=== PATIENT | male | born 1935 | race Hispanic/Latino ===

== ENCOUNTER 2016-10-02 10:03 | Emergency (ER) | payer MEDICARE ==
--- NOTE | 2016-10-02 11:01 | Emergency Department Report ---
ED General Adult HPI - General Chief complaint: Back Pain/Injury Stated complaint: UPPER BACK PAIN Time Seen by Provider: 10/02/16 10:22 Source: patient Mode of arrival: Ambulatory Limitations: No Limitations - History of Present Illness Initial comments: 81 year old male presents with thoracic pain after doing plumbing work at the house 2 weeks ago. states it is an aching pain without radiation. states tylenol helps with the symptoms .denies other injury. states full rom of the neck and spine. - Related Data Home Medications Medication Instructions Recorded Confirmed Last Taken Atorvastatin [Lipitor] 40 mg PO DAILY 01/20/14 03/28/15 03/27/15 12:00 [place]-3 Fatty Acids/Fish Oil [Fish 1 tab PO DAILY 08/27/14 03/23/15 03/22/15 Oil] Previous Rx's Medication Instructions Recorded Last Taken Type Aspirin [Aspirin BABY CHEW TAB] 81 mg PO DAILY tab.chew 03/31/15 Unknown Rx AtorvaSTATin [Lipitor] 40 mg PO DAILY tablet 03/31/15 Unknown Rx Ezetimibe [Zetia] 10 mg PO DAILY tablet 03/31/15 Unknown Rx Ipratropium/Albuterol Sulfate 1 ampul IH Q6HRT ampul.neb 03/31/15 Unknown Rx [Duoneb 0.5 mg-3 mg/3 ml Soln] Levofloxacin [Levaquin TAB] 750 mg PO Q24HR #8 tablet 03/31/15 Unknown Rx [place]-3 Fatty Acids/Fish Oil [Fish 1,000 mg PO DAILY capsule 03/31/15 Unknown Rx Oil] oxyCODONE /ACETAMINOPHEN [Percocet 1 tab PO Q3HR PRN #45 tablet 03/31/15 Unknown Rx 5/325 mg] traMADol [Ultram 50 MG tab] 50 mg PO Q6HR PRN #14 tablet 10/02/16 Unknown Rx Allergies Allergy/AdvReac Type Severity Reaction Status Date / Time No Known Allergies Allergy Unverified 01/20/14 08:07 ED Review of Systems ROS: Stated complaint: UPPER BACK PAIN Other details as noted in HPI Constitutional: denies: chills, fever Eyes: denies: eye pain, eye discharge, vision change ENT: denies: ear pain, throat pain Respiratory: denies: cough, shortness of breath, wheezing Cardiovascular: denies: chest pain, palpitations Endocrine: no symptoms reported Gastrointestinal: denies: abdominal pain, nausea, diarrhea Genitourinary: denies: urgency, dysuria Musculoskeletal: back pain. denies: joint swelling, arthralgia Skin: denies: rash, lesions Neurological: denies: headache, weakness, paresthesias Psychiatric: denies: anxiety, depression Hematological/Lymphatic: denies: easy bleeding, easy bruising ED Past Medical Hx - Past Medical History Previous Medical History?: Yes Hx Hypertension: Yes Hx Heart Attack/AMI: No Hx Congestive Heart Failure: No Hx Deep Vein Thrombosis: No Hx Pulmonary Embolism: No Hx GERD: Yes Hx Liver Disease: (LFT ELEVATED; LIVER BIOPSY 01/2014,"EVERYTHING WAS OK") Hx Sickle Cell Disease: No Hx Arthritis: Yes Hx Asthma: No Hx COPD: No Hx Tuberculosis: No Hx HIV: No - Surgical History Past Surgical History?: Yes Hx Coronary Stent: Yes Hx Open Heart Surgery: No Hx Pacemaker: No Hx Internal Defibrillator: No Hx Cholecystectomy: No Hx Appendectomy: No Hx Breast Surgery: No Additional Surgical History: Right shoulder surgery - Social History Smoking Status: Never Smoker Substance Use Type: Non Opiate Pain, Prescribed - Medications Home Medications: Home Medications Medication Instructions Recorded Confirmed Last Taken Type Atorvastatin [Lipitor] 40 mg PO DAILY 01/20/14 03/28/15 03/27/15 12:00 History [place]-3 Fatty Acids/Fish Oil [Fish 1 tab PO DAILY 08/27/14 03/23/15 03/22/15 History Oil] Aspirin [Aspirin BABY CHEW TAB] 81 mg PO DAILY tab.chew 03/31/15 Unknown Rx AtorvaSTATin [Lipitor] 40 mg PO DAILY tablet 03/31/15 Unknown Rx Ezetimibe [Zetia] 10 mg PO DAILY tablet 03/31/15 Unknown Rx Ipratropium/Albuterol Sulfate 1 ampul IH Q6HRT ampul.neb 03/31/15 Unknown Rx [Duoneb 0.5 mg-3 mg/3 ml Soln] Levofloxacin [Levaquin TAB] 750 mg PO Q24HR #8 tablet 03/31/15 Unknown Rx [place]-3 Fatty Acids/Fish Oil [Fish 1,000 mg PO DAILY capsule 03/31/15 Unknown Rx Oil] oxyCODONE /ACETAMINOPHEN [Percocet 1 tab PO Q3HR PRN #45 tablet 03/31/15 Unknown Rx 5/325 mg] traMADol [Ultram 50 MG tab] 50 mg PO Q6HR PRN #14 tablet 10/02/16 Unknown Rx ED Physical Exam - General Limitations: No Limitations General appearance: alert, in no apparent distress - Head Head exam: Present: atraumatic, normocephalic - Eye Eye exam: Present: normal appearance - ENT ENT exam: Present: mucous membranes moist - Neck Neck exam: Present: normal inspection - Respiratory Respiratory exam: Present: normal lung sounds bilaterally. Absent: respiratory distress - Cardiovascular Cardiovascular Exam: Present: regular rate, normal rhythm. Absent: systolic murmur, diastolic murmur, rubs, gallop - GI/Abdominal GI/Abdominal exam: Present: soft, normal bowel sounds - Rectal Rectal exam: Present: deferred - Extremities Exam Extremities exam: Present: normal inspection - Back Exam Back exam: Present: normal inspection, vertebral tenderness (to the midline upper thoracic spine region,) - Neurological Exam Neurological exam: Present: alert, oriented X3 - Psychiatric Psychiatric exam: Present: normal affect, normal mood - Skin Skin exam: Present: warm, dry, intact, normal color. Absent: rash ED Course Vital Signs 10/02/16 10:07 Temperature 97.6 F Pulse Rate 53 L Respiratory 20 Rate Blood Pressure 122/73 O2 Sat by Pulse 98 Oximetry ED Medical Decision Making - Radiology Data Radiology results: image reviewed thoracic XR is unremarkable. Critical care attestation.: If time is entered above; I have spent that time in minutes in the direct care of this critically ill patient, excluding procedure time. ED Disposition Clinical Impression: Thoracic back sprain Disposition: DISCHARGED TO HOME OR SELFCARE Is pt being admited?: No Does the pt Need Aspirin: No Condition: Good Instructions: Back Pain (ED) Prescriptions: traMADol [Ultram 50 MG tab] 50 mg PO Q6HR PRN #14 tablet PRN Reason: Pain Referrals: PRIMARY CARE, [Primary Care Provider] - 3-5 Days JOSE ROBERTO BARCLAY MD [Staff Physician] - 3-5 Days Time of Disposition: 11:01
--- NOTE | 2016-10-02 11:35 | XRay Report ---
THORACIC SPINE RADIOGRAPHS INDICATION: Thoracic pain after working. COMPARISON: None similar. FINDINGS: AP and lateral thoracic spine radiographs suggest slight scoliosis superiorly, not significantly changed since 03/28/2015 CXR. Osteopenia/osteoporosis. Slight degenerative spurring at few levels. No abnormal paraspinal density with grossly intact costovertebral junctions and symmetric pedicles. Aortic knob calcifications. Clear imaged lungs. CONCLUSION: No definite acute thoracic spine radiographic abnormality with few degenerative changes and other findings, as described. Please correlate. Thank you for the opportunity to participate in this patient's care.
[2016-10-02 12:45] VITALS: BP 115/57
== END 2016-10-02 12:41 | disposition home or self-care (01) ==
LOC: ED 10:03
DX: S23.3XXA Sprain of ligaments of thoracic spine, initial encounter (principal); I10 Essential (primary) hypertension; M19.90 Unspecified osteoarthritis, unspecified site; K21.9 Gastro-esophageal reflux disease without esophagitis; Z79.82 Long term (current) use of aspirin; X58.XXXA Exposure to other specified factors, initial encounter; Y93.89 Activity, other specified; Y99.9 Unspecified external cause status; Y92.89 Other specified places as the place of occurrence of the external cause
CPT/HCPCS: 36415; 72072; 84484; 93005; 93010

== ENCOUNTER 2018-05-20 08:30 | Emergency (ER) | payer MEDICARE ==
[2018-05-20 09:24] VITALS: BP 135/57
--- NOTE | 2018-05-20 10:01 | Emergency Department Report ---
Blank Doc - Documentation Documentation: Patient presents to [facility] chief complaint of cough 4 weeks along with a weight loss. Patient denies fever or chest pain. Was seen by his primary care physician on the ninth of this month and had an x-ray done of his chest that was clear of any disease but the patient was told to follow with a lung doctor. Patient states that this was prescribed to exam because he did not understand why he needs to see a lung doctor if his chest x-ray was clear.Care of patient will be transferred to the Nurse Practitioner with any available for consultation
--- NOTE | 2018-05-20 10:02 | Emergency Department Report ---
- General Chief Complaint: Upper Respiratory Infection Stated Complaint: COUGHING,SORE ON RIGHT SIDE CHEST Time Seen by Provider: 05/20/18 09:37 Source: patient Mode of arrival: Ambulatory Limitations: No Limitations - Related Data Home Medications Medication Instructions Recorded Confirmed Last Taken Lisinopril [Zestril TAB] 5 mg PO DAILY 01/21/18 01/23/18 01/22/18 09:00 Previous Rx's Medication Instructions Recorded Last Taken Type Aspirin [Aspirin BABY CHEW TAB] 81 mg PO DAILY tab.chew 03/31/15 01/19/18 09: 00 Rx AtorvaSTATin [Lipitor] 40 mg PO DAILY tablet 03/31/15 01/22/18 09:00 Rx Ezetimibe [Zetia] 10 mg PO DAILY tablet 03/31/15 01/22/18 09:00 Rx [place]-3 Fatty Acids/Fish Oil [Fish 1,000 mg PO DAILY capsule 03/31/15 01/22/18 09:00 Rx Oil] Benzonatate [Tessalon Perles] 100 mg PO Q8HR PRN #12 capsule 05/20/18 Unknown Rx Allergies Allergy/AdvReac Type Severity Reaction Status Date / Time No Known Allergies Allergy Verified 01/21/18 10:51 ED Review of Systems ROS: Stated complaint: COUGHING,SORE ON RIGHT SIDE CHEST Other details as noted in HPI Comment: All other systems reviewed and negative Constitutional: denies: chills Eyes: denies: as per HPI ENT: denies: ear pain Respiratory: cough Cardiovascular: denies: chest pain Endocrine: denies: excessive sweating Gastrointestinal: denies: abdominal pain Genitourinary: denies: urgency Musculoskeletal: denies: back pain Skin: denies: lesions Neurological: denies: headache Psychiatric: denies: anxiety Hematological/Lymphatic: denies: easy bleeding ED Past Medical Hx - Past Medical History Hx Hypertension: Yes Hx Heart Attack/AMI: No Hx Congestive Heart Failure: No Hx Deep Vein Thrombosis: No Hx Pulmonary Embolism: No Hx GERD: Yes Hx Liver Disease: (LFT ELEVATED; LIVER BIOPSY 01/2014,"EVERYTHING WAS OK") Hx Sickle Cell Disease: No Hx Arthritis: Yes Hx Asthma: No Hx COPD: No Hx Tuberculosis: No Hx HIV: No - Surgical History Hx Coronary Stent: Yes Hx Open Heart Surgery: No Hx Pacemaker: No Hx Internal Defibrillator: No Hx Cholecystectomy: No Hx Appendectomy: No Hx Breast Surgery: No Additional Surgical History: Right shoulder surgery - Social History Smoking Status: Never Smoker - Medications Home Medications: Home Medications Medication Instructions Recorded Confirmed Last Taken Type Aspirin [Aspirin BABY CHEW TAB] 81 mg PO DAILY tab.chew 03/31/15 01/23/1801/19 09:00 Rx AtorvaSTATin [Lipitor] 40 mg PO DAILY tablet 03/31/15 01/23/18 01/22/18 09:00 Rx Ezetimibe [Zetia] 10 mg PO DAILY tablet 03/31/15 01/23/18 01/22/18 09:00 Rx [place]-3 Fatty Acids/Fish Oil [Fish 1,000 mg PO DAILY capsule 03/31/15 01/23/18 01/22/18 09:00 Rx Oil] Lisinopril [Zestril TAB] 5 mg PO DAILY 01/21/18 01/23/18 01/22/18 09:00 History Benzonatate [Tessalon Perles] 100 mg PO Q8HR PRN #12 capsule 05/20/18 Unknown Rx ED Physical Exam - General Limitations: No Limitations General appearance: alert - Head Head exam: Present: atraumatic - Eye Eye exam: Present: normal appearance - ENT ENT exam: Present: mucous membranes moist - Neck Neck exam: Present: normal inspection - Respiratory Respiratory exam: Present: normal lung sounds bilaterally - Cardiovascular Cardiovascular Exam: Present: regular rate - GI/Abdominal GI/Abdominal exam: Present: soft - Rectal Rectal exam: Present: deferred - Extremities Exam Extremities exam: Present: normal inspection, full ROM - Back Exam Back exam: Present: normal inspection, full ROM - Neurological Exam Neurological exam: Present: alert, oriented X3 - Psychiatric Psychiatric exam: Present: normal affect, normal mood - Skin Skin exam: Present: warm, dry ED Course Vital Signs 05/20/18 05/20/18 09:19 09:41 Temperature 97.8 F Pulse Rate 97 H Respiratory 16 Rate Blood Pressure 135/57 O2 Sat by Pulse 95 Oximetry ED Medical Decision Making - Lab Data Result diagrams: 05/20/18 10:10 05/20/18 10:10 - Radiology Data Radiology results: report reviewed, image reviewed - Medical Decision Making xray n on lisinopril - Differential Diagnosis ro pna or mass Critical care attestation.: If time is entered above; I have spent that time in minutes in the direct care of this critically ill patient, excluding procedure time. ED Disposition Clinical Impression: Cough Disposition: DC-01 TO HOME OR SELFCARE Is pt being admited?: No Does the pt Need Aspirin: No Condition: Stable Instructions: Chronic Cough (ED) Additional Instructions: follow up with pulmonology MD Prescriptions: Benzonatate [Tessalon Perles] 100 mg PO Q8HR PRN #12 capsule PRN Reason: Cough Referrals: PRIMARY CARE, [Primary Care Provider] - 3-5 Days GRAZYNA MIRANDA MD [Staff Physician] - 3-5 Days Time of Disposition: 11:40
[2018-05-20 10:21] LABS: Basophils % (Auto) 0.6 % (0.0-1.8); Eosinophils # (Auto) 0.5 K/mm3 (0.0-0.4); Eosinophils % (Auto) 7.7 % (0.0-4.3); Hemoglobin 13.9 gm/dl (11.8-15.2); Lymphocytes # (Auto) 1.5 K/mm3 (1.2-5.4); Lymphocytes % (Auto) 23.7 % (13.4-35.0); Mean Corpuscular HGB Conc 33 % (32-34); Mean Corpuscular Hemoglobin 32 pg (28-32); Mean Corpuscular Volume 98 fl (84-94); Monocytes # (Auto) 0.7 K/mm3 (0.0-0.8); Monocytes % (Auto) 10.2 % (0.0-7.3); Platelet Count 143 K/mm3 (140-440); Red Cell Distribution Width 13.8 % (13.2-15.2)
[2018-05-20 10:52] LABS: Alanine Aminotransferase 31 units/L (7-56); Albumin 3.9 g/dL (3.9-5); BUN/Creatinine Ratio 15; Blood Urea Nitrogen 15 mg/dL (9-20); Calcium 8.7 mg/dL (8.4-10.2); Hemolysis Index 8
--- NOTE | 2018-05-20 11:22 | Cat Scan Report ---
CT chest without contrast: Cough. Transverse images are obtained through the chest into the upper abdomen. Coronal and sagittal 2-D reformatted images are included. There is no hilar and no mediastinal adenopathy appreciated. The central airways are patent. The cardiac contour is grossly normal in size. Cardiovascular calcifications are present. The thoracic aorta is normal in size and contour. There are no nodules and no infiltrates identified. There is mild atelectasis inferior to the left hilum. The pleural surfaces are unremarkable. There are no effusions. Images carried into the upper abdomen demonstrates a partially visualized exophytic left renal cyst. No lytic or blastic bone lesions. The bones are demineralized. No prior exam for comparison. Impression: Minimal left subhilar atelectasis.
== END 2018-05-20 11:47 | disposition home or self-care (01) ==
LOC: ED 08:30
DX: R05 Cough (principal); I10 Essential (primary) hypertension; K21.9 Gastro-esophageal reflux disease without esophagitis; M19.90 Unspecified osteoarthritis, unspecified site; Z95.818 Presence of other cardiac implants and grafts; Z79.899 Other long term (current) drug therapy
CPT/HCPCS: 36415; 71250; 80053; 85025

== ENCOUNTER 2019-12-17 11:55 | Inpatient (IN) | payer MEDICARE ==
[2019-12-17] MEDS ORDERED: ASPIRIN 325 MG TAB PO ONE (12:02)
--- NOTE | 2019-12-17 13:12 | XRay Report ---
CHEST 2 VIEWS INDICATION: Chest pain. COMPARISON: 01/21/2018 FINDINGS: Support devices: None. Heart: Within normal limits. Lungs/pleura: No acute air space or interstitial disease. No pneumothorax. Additional findings: None. IMPRESSION: No acute findings. Signer Name: Jaime Garber Jr, MD Signed: 12/17/2019 1:07 PM Workstation Name: [id number]
[2019-12-17 13:15] LABS: Basophils % (Auto) 0.5 % (0.0-1.8); Eosinophils # (Auto) 0.1 K/mm3 (0.0-0.4); Eosinophils % (Auto) 1.9 % (0.0-4.3); Hematocrit 39.4 % (35.5-45.6); Lymphocytes # (Auto) 1.9 K/mm3 (1.2-5.4); Lymphocytes % (Auto) 33.2 % (13.4-35.0); Mean Corpuscular HGB Conc 33 % (32-34); Mean Corpuscular Volume 98 fl (84-94); Monocytes # (Auto) 0.5 K/mm3 (0.0-0.8); Monocytes % (Auto) 9.6 % (0.0-7.3); Platelet Count 132 K/mm3 (140-440); Red Blood Count 4.01 M/mm3 (3.65-5.03); Red Cell Distribution Width 14.1 % (13.2-15.2)
[2019-12-17 13:44] LABS: Alanine Aminotransferase 34 units/L (7-56); Albumin 4.2 g/dL (3.9-5); BUN/Creatinine Ratio 16; Blood Urea Nitrogen 16 mg/dL (9-20); Calcium 8.9 mg/dL (8.4-10.2); Hemolysis Index 7
--- NOTE | 2019-12-17 16:57 | Emergency Department Report ---
ED Chest Pain HPI - General Chief Complaint: Chest Pain Stated Complaint: CHEST PAIN PUI?: No Time Seen by Provider: 12/17/19 16:40 Source: patient Mode of arrival: Ambulatory Limitations: No Limitations - History of Present Illness Initial Comments: Patient is an 84-year-old male that presents emergency room with complaints of chest pain rating down his left arm. Patient states his chest pain has been intermittent for 2 to 3 weeks. Patient states his chest pain started this morning at 10 AM and is a 4-5 out of 10. Patient states that his chest pain is unchanged with exertion. Patient states he has dyspnea on exertion at times. Patient states his been having a lot of fatigue as well. 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 Fernandez office sent him here for an evaluation. Patient denies diaphoresis and nausea and vomiting. Patient states he had a mild heart attack and has had 2 stents placed 10 years ago. Patient denies CHF. Patient denies of diabetes. Patient states he has history of hypertension and GERD. MD Complaint: chest pain -: Sudden Pain Location: substernal, left chest Pain Radiation: LUE Severity: mild, moderate Severity scale (0 -10): 4 Quality: heaviness, squeezing Consistency: constant Improves With: nothing Worsens With: nothing re: dyspnea. denies: nausea, vomting, diaphoresis, sense of impending doom Other Symptoms: denies: cough, fever, syncope, rash, acid taste in mouth, leg swelling, palpitations, burping Treatments Prior to Arrival: aspirin Aspirin use within the Past 7 Days: (1) Yes - Related Data On Oral Contraceptives: No Home Medications Medication Instructions Recorded Confirmed Last Taken lisinopriL [Zestril TAB] 5 mg PO DAILY 01/21/18 01/23/18 01/22/18 09:00 Previous Rx's Medication Instructions Recorded Last Taken Type Aspirin [Aspirin BABY CHEW TAB] 81 mg PO DAILY tab.chew 03/31/15 01/19/18 09:00 Rx AtorvaSTATin [Lipitor] 40 mg PO DAILY tablet 03/31/15 01/22/18 09:00 Rx Ezetimibe [Zetia] 10 mg PO DAILY tablet 03/31/15 01/22/18 09:00 Rx [place]-3 Fatty Acids/Fish Oil [Fish 1,000 mg PO DAILY capsule 03/31/15 01/22/18 09:00 Rx Oil] Benzonatate [Tessalon Perles] 100 mg PO Q8HR PRN #12 capsule 05/20/18 Unknown Rx Allergies Allergy/AdvReac Type Severity Reaction Status Date / Time No Known Allergies Allergy Verified 12/17/19 11:56 Heart Score - HEART Score History: Moderately suspicious EKG: Non-specific Age: > 65 Risk factors: > 3 risk factors or hx of atherosclerotic disease Troponin: < normal limit HEART Score: 6 ED Review of Systems ROS: Stated complaint: CHEST PAIN Other details as noted in HPI Constitutional: denies: chills, fever Eyes: denies: eye pain, eye discharge, vision change ENT: denies: ear pain, throat pain Respiratory: denies: cough, wheezing Cardiovascular: chest pain, dyspnea on exertion. denies: palpitations Endocrine: no symptoms reported Gastrointestinal: denies: abdominal pain, nausea, diarrhea Genitourinary: denies: urgency, dysuria Musculoskeletal: denies: back pain, joint swelling, arthralgia Skin: denies: rash, lesions Neurological: denies: headache, weakness, paresthesias Psychiatric: denies: anxiety, depression Hematological/Lymphatic: denies: easy bleeding, easy bruising ED Past Medical Hx - Past Medical History Previous Medical History?: Yes Hx Hypertension: Yes Hx Heart Attack/AMI: No Hx Congestive Heart Failure: No Hx Deep Vein Thrombosis: No Hx Pulmonary Embolism: No Hx GERD: Yes Hx Liver Disease: (LFT ELEVATED; LIVER BIOPSY 01/2014,"EVERYTHING WAS OK") Hx Sickle Cell Disease: No Hx Arthritis: Yes Hx Asthma: No Hx COPD: No Hx Tuberculosis: No Hx HIV: No - Surgical History Past Surgical History?: Yes Hx Coronary Stent: Yes Hx Open Heart Surgery: No Hx Pacemaker: No Hx Internal Defibrillator: No Hx Cholecystectomy: No Hx Appendectomy: No Hx Breast Surgery: No Additional Surgical History: Right shoulder surgery/ KNEE SURGERY X 3 - Family History Family history: no significant - Social History Smoking Status: Never Smoker Substance Use Type: None - Medications Home Medications: Home Medications Medication Instructions Recorded Confirmed Last Taken Type Aspirin [Aspirin BABY CHEW TAB] 81 mg PO DAILY tab.chew 03/31/15 01/23/18 01/19/18 09:00 Rx AtorvaSTATin [Lipitor] 40 mg PO DAILY tablet 03/31/15 01/23/18 01/22/18 09:00 Rx Ezetimibe [Zetia] 10 mg PO DAILY tablet 03/31/15 01/23/18 01/22/18 09:00 Rx [place]-3 Fatty Acids/Fish Oil [Fish 1,000 mg PO DAILY capsule 03/31/15 01/23/18 01/22/18 09:00 Rx Oil] lisinopriL [Zestril TAB] 5 mg PO DAILY 01/21/18 01/23/18 01/22/18 09:00 History Benzonatate [Tessalon Perles] 100 mg PO Q8HR PRN #12 capsule 05/20/18 Unknown Rx ED Physical Exam - General Limitations: No Limitations General appearance: alert, in no apparent distress - Head Head exam: Present: atraumatic, normocephalic - Eye Eye exam: Present: normal appearance - ENT ENT exam: Present: mucous membranes moist - Neck Neck exam: Present: normal inspection - Respiratory Respiratory exam: Present: normal lung sounds bilaterally. Absent: respiratory distress, chest wall tenderness - Cardiovascular Cardiovascular Exam: Present: regular rate, normal rhythm. Absent: systolic murmur, diastolic murmur, rubs, gallop - GI/Abdominal GI/Abdominal exam: Present: soft, normal bowel sounds - Rectal Rectal exam: Present: deferred - Extremities Exam Extremities exam: Present: normal inspection - Back Exam Back exam: Present: normal inspection - Neurological Exam Neurological exam: Present: alert, oriented X3 - Psychiatric Psychiatric exam: Present: normal affect, normal mood - Skin Skin exam: Present: warm, dry, intact, normal color. Absent: rash ED Course Vital Signs 12/17/19 12/17/19 12/17/19 11:56 17:08 17:11 Temperature 98.2 F Pulse Rate 59 L 49 L Respiratory 18 14 16 Rate Blood Pressure 128/65 Blood Pressure 196/76 [Left] O2 Sat by Pulse 95 99 98 Oximetry 12/17/19 12/17/19 12/17/19 17:16 18:00 18:16 Temperature Pulse Rate 42 L 46 L 49 L Respiratory 16 7 L 17 Rate Blood Pressure 196/76 210/86 Blood Pressure [Left] O2 Sat by Pulse 97 96 96 Oximetry 12/17/19 12/17/19 12/17/19 18:30 18:46 19:00 Temperature Pulse Rate 53 L 53 L 46 L Respiratory 12 21 13 Rate Blood Pressure 210/86 210/86 210/86 Blood Pressure [Left] O2 Sat by Pulse 96 97 98 Oximetry 12/17/19 12/17/19 12/17/19 20:00 20:16 20:30 Temperature Pulse Rate 46 L 47 L 50 L Respiratory 18 13 12 Rate Blood Pressure 232/95 127/46 190/72 Blood Pressure [Left] O2 Sat by Pulse 98 97 98 Oximetry 12/17/19 12/17/19 12/17/19 20:46 21:00 21:16 Temperature Pulse Rate 45 L 44 L 47 L Respiratory 18 9 L 14 Rate Blood Pressure 190/72 190/72 149/66 Blood Pressure [Left] O2 Sat by Pulse 97 98 97 Oximetry 12/17/19 12/17/19 12/17/19 21:30 21:46 21:56 Temperature Pulse Rate 43 L 44 L 49 L Respiratory 18 8 L 14 Rate Blood Pressure 149/66 150/61 Blood Pressure 150/61 [Left] O2 Sat by Pulse 96 96 96 Oximetry - Reevaluation(s) Reevaluation #1: I discussed all results with patient. I discussed plan of care with patient. Patient agrees with plan of care and admission. Patient to be admitted to the hospitalist service. 12/17/19 16:57 - Consultations Consultation #1: Hospitalist consulted for admission. Hospitalist to admit patient. 12/17/19 16:57 Consultation #2: Cardiology consult placedDr. Fernandez. 12/17/19 17:01 NATHALIA score - Nathalia Score Age > 65: (1) Yes Aspirin use within the Past 7 Days: (1) Yes 3 or more CAD Risk Factors: (1) Yes 2 or more Angina events in past 24 hrs: (1) Yes Known CAD with more than 50% Stenosis: (0) No Elevated Cardiac Markers: (0) No ST Deviation Greater than 0.5mm: (0) No NATHALIA Score: 4 ED Medical Decision Making - Lab Data Result diagrams: 12/17/19 13:01 12/17/19 13:01 - EKG Data -: EKG Interpreted by Ne EKG shows normal: sinus rhythm, intervals, ST-T waves - EKG Data Interpretation: other (Right bundle branch block, axis deviation, LAFB. Borderline LVH) - Radiology Data Radiology results: report reviewed CHEST 2 VIEWS INDICATION: Chest pain. COMPARISON: 01/21/2018 FINDINGS: Support devices: None. Heart: Within normal limits. Lungs/pleura: No acute air space or interstitial disease. No pneumothorax. Additional findings: None. IMPRESSION: No acute findings. - Medical Decision Making Patient is an 84-year-old male that presents emergency room with complaints of chest pain. Patient has a history of CAD and 2 cardiac stents. Patient also had mild dyspnea on exertion. Patient had labs done which were negative. Patient troponin was negative the patient will require further evaluation to rule out ACS. Patient admitted to the hospital service. Consult placed for the patient's ship cleaner, Dr. Fernandez. Patient given aspirin. - Differential Diagnosis ACS, CAD, chest pain, [facility]KEON Critical Care Time: Yes Critical care time in (mins) excluding proc time.: 35 Critical care attestation.: If time is entered above; I have spent that time in minutes in the direct care of this critically ill patient, excluding procedure time. Critical Care Time: 35 minutes ED Disposition Clinical Impression: History of heart artery stent Chest pain Qualifiers: Chest pain type: unspecified Qualified Code(s): R07.9 - Chest pain, unspecified CAD (coronary artery disease) Qualifiers: Coronary Disease-Associated Artery/Lesion type: [place] artery [place] vs. transplanted heart: [place] heart Associated angina: with unspecified angina Qualified Code(s): I25.119 - Atherosclerotic heart disease of [place] coronary artery with unspecified angina pectoris Disposition: -09 OP ADMIT IP TO THIS HOSP Is pt being admited?: Yes Does the pt Need Aspirin: No Condition: Critical Time of Disposition: 16:58
--- NOTE | 2019-12-17 16:58 | History and Physical Report ---
History of Present Illness Chief complaint: My chest hurts History of present illness: 84 YO Male with HTN, HLD, GERD, CAD S/P Stent Placement, OA presents to ED for evaluation. Pt states that he has experienced pain in his chest over the past 3 weeks with a sudden onset of worsening chest pain this morning shortly after awakening from sleep at around 1000 hrs. Patient states that pain is 45/10, was initially intermittent but has now become more constant, sharp, crushing in nature, substernal, radiates to the left arm, not worsened with exertion, not relieved with rest. Patient acknowledges orthopnea/PND, decreased exercise tolerance, dyspnea on exertion. Patient transported to [facility] via private vehicle for further evaluation and care. Patient seen and evaluated in the emergency department. Lab and imaging studies reviewed. Patient found to have clinical symptoms consistent with CHF decompensation, as well as angina at rest. Patient admitted to telemetry and initiated on CHF protocol. Cardiology team consulted in the ED. Echocardiogram is ordered and pending at the time of admission. Patient denies fever, chills, palpitation, productive cough, skin rash, nausea, vomiting, diarrhea, known ill contacts, known exposure to COVID-19. Advanced care planning conducted in ED. No prior admission for review. All medication listed at time of admission has been reconciled. Past History Past Medical History: CAD, GERD, hypertension Past Surgical History: total knee replacement, Other (Right shoulder surgery) Social history: , lives with family. denies: smoking, alcohol abuse Family history: hypertension Medications and Allergies Allergies Allergy/AdvReac Type Severity Reaction Status Date / Time No Known Allergies Allergy Verified 12/17/19 11:56 Home Medications Medication Instructions Recorded Confirmed Last Taken Type Aspirin [Aspirin BABY CHEW TAB] 81 mg PO DAILY tab.chew 03/31/15 01/23/18 01/19/18 09:00 Rx AtorvaSTATin [Lipitor] 40 mg PO DAILY tablet 03/31/15 01/23/18 01/22/18 09:00 Rx Ezetimibe [Zetia] 10 mg PO DAILY tablet 03/31/15 01/23/18 01/22/18 09:00 Rx [place]-3 Fatty Acids/Fish Oil [Fish 1,000 mg PO DAILY capsule 03/31/15 01/23/18 01/22/18 09:00 Rx Oil] lisinopriL [Zestril TAB] 5 mg PO DAILY 01/21/18 01/23/18 01/22/18 09:00 History Benzonatate [Tessalon Perles] 100 mg PO Q8HR PRN #12 capsule 05/20/18 Unknown Rx Review of Systems Constitutional: no weight loss, no weight gain, no fever, no chills Ears, nose, mouth and throat: no ear pain, no tinnitis, no decreased hearing, no nose pain Cardiovascular: chest pain, orthopnea, dyspnea on exertion, paroxysmal nocturnal dyspnea, decreased exercise tolerance, no palpitations Respiratory: no cough, no cough with sputum, no hemoptysis Gastrointestinal: no abdominal pain, no nausea, no vomiting, no diarrhea, no hematemesis Genitourinary Male: no hematuria, no flank pain, no discharge, no urinary frequency, no urinary hesitancy Rectal: no pain, no incontinence, no bleeding Musculoskeletal: no neck stiffness, no neck pain, no shooting arm pain, no low back pain Integumentary: no rash, no pruritis, no redness, no sores, no wounds Neurological: no transient paralysis, no paralysis, no weakness, no parathesias, no numbness, no tingling, no seizures Psychiatric: no anxiety, no memory loss, no change in sleep habits, no sleep disturbances, no insomnia, no hypersomnia, no change in appetite, no change in libido Endocrine: no cold intolerance, no heat intolerance, no polyphagia, no excessive thirst, no polydipsia Hematologic/Lymphatic: no easy bruising, no easy bleeding, no lymphedema Allergic/Immunologic: no persistent infections Exam - Constitutional Vitals: Temp Pulse Resp BP Pulse Ox 98.2 F 59 L 18 128/65 95 12/17/19 11:56 12/17/19 11:56 12/17/19 11:56 12/17/19 11:56 12/17/19 11:56 General appearance: Present: no acute distress, well-nourished - EENT Eyes: Present: PERRL ENT: hearing intact, clear oral mucosa - Neck Neck: Present: supple, normal ROM - Respiratory Respiratory effort: normal Respiratory: bilateral: CTA - Cardiovascular Heart Sounds: Present: S1 & S2. Absent: rub, click - Extremities Extremities: pulses symmetrical, No edema Peripheral Pulses: within normal limits - Abdominal General gastrointestinal: Present: soft, non-tender, non-distended, normal bowel sounds Male genitourinary: Present: normal - Integumentary Integumentary: Present: clear, warm, dry - Musculoskeletal Musculoskeletal: gait normal, strength equal bilaterally - Psychiatric Psychiatric: appropriate mood/affect, intact judgment & insight - Neurologic Neurologic: CNII-XII intact, moves all extremities HEART Score - HEART Score EKG: Non-specific Age: > 65 Risk factors: > 3 risk factors or hx of atherosclerotic disease Troponin: Troponin T < 0.010 ng/mL (0.00-0.029) 12/17/19 14:53 Troponin: < normal limit Results - Labs CBC & Chem 7: 12/17/19 13:01 12/17/19 13:01 Labs: Abnormal lab results 12/17/19 Range/Units 13:01 MCV 98 H (84-94) fl MCH 33 H (28-32) pg Plt Count 132 L (140-440) K/mm3 [place] % (Auto) 9.6 H (0.0-7.3) % Assessment and Plan - Patient Problems (1) Diastolic CHF Current Visit: Yes Status: Suspected Qualifiers: Heart failure chronicity: acute Qualified Code(s): I50.31 - Acute diastolic (congestive) heart failure Plan to address problem: Strict I's/O, daily weight, afterload reduction, monitor urine output every shift, BMP, thyroid panel, magnesium level, echocardiogram pending at the time of admission. Cardiology team consulted in ED. (2) Angina at rest Current Visit: Yes Status: Acute Plan to address problem: Serial cardiac enzymes, EKG, telemetry monitoring, cardiology consulted, supportive care. Supplemental oxygen, nitro as needed, aspirin, morphine as needed. (3) CAD (coronary artery disease) Current Visit: Yes Status: Acute Qualifiers: Coronary Disease-Associated Artery/Lesion type: [place] artery [place] vs. transplanted heart: [place] heart Associated angina: with unspecified angina Qualified Code(s): I25.119 - Atherosclerotic heart disease of [place] coronary artery with unspecified angina pectoris Plan to address problem: Lipid panel, low-cholesterol diet, risk factor reduction therapy, statin therapy. (4) Hyperlipidemia Current Visit: Yes Status: Acute Qualifiers: Hyperlipidemia type: mixed hyperlipidemia Qualified Code(s): E78.2 - Mixed hyperlipidemia Plan to address problem: Lipid panel, statin therapy, low-cholesterol diet, risk factor reduction. (5) Gastroesophageal reflux disease Current Visit: Yes Status: Acute Qualifiers: Esophagitis presence: without esophagitis Qualified Code(s): K21.9 - Gastro-esophageal reflux disease without esophagitis Plan to address problem: PPI therapy, supportive care, outpatient gastroenterology follow-up. (6) DVT prophylaxis Current Visit: No Status: Acute Plan to address problem: SCD to bilateral lower extremities while in bed, patient is ambulatory. (7) Advance care planning Current Visit: Yes Status: Acute Plan to address problem: Disease education conducted, patient is full code, patient acknowledges understanding and agreement with care plan, +30 minutes.
[2019-12-17] MEDS ORDERED: ACETAMINOPHEN 325 MG TAB PO PRN (17:00)
[2019-12-17] MEDS ORDERED: ONDANSETRON 4 MG/2 ML INJ IV PRN (17:00)
[2019-12-17] MEDS ORDERED: BENZONATATE 100 MG CAP PO PRN (17:01)
[2019-12-17 17:56] LABS: Chol/HDL Ratio 2.73 %
[2019-12-17 18:10] LABS: Free T4 (Free Thyroxine) 1.04 ng/dL (0.76-1.46)
[2019-12-18 06:03] LABS: Alanine Aminotransferase 29 units/L (7-56); Albumin 3.6 g/dL (3.9-5); BUN/Creatinine Ratio 15; Blood Urea Nitrogen 15 mg/dL (9-20); Calcium 8.8 mg/dL (8.4-10.2); Hemolysis Index 16
[2019-12-18] MEDS ORDERED: REGADENOSON 0.4 MG/5 ML INJ IV ONE ×2 (09:06→09:09)
--- NOTE | 2019-12-18 09:44 | Consultation ---
History of Present Illness Consult date: 12/18/19 Requesting physician: DUSTY PAREDES III Consult reason: chest pain History of present illness: The pt is an 84 YO male with a past medical history of CAD s/p PCI, HTN, HLP, RBBB. He is followed in our office by Dr. Fernandez. He presented with c/o chest pain for the past 2 months. He called our office yesterday with c/o worsening chest pain and was instructed to present to ED for further eval/management. Pt describes his chest pain as an intermittent left-sided stabbing pain with no clear aggravating or alleviating factors. The pain sometimes radiates down his left arm. He denies any associated SOB, palpitations, n/v, diaphoresis, dizziness or syncope. He does admit to easy fatigability over the past 2 months. LHC done 11/2009 with PCI of mid and prox LAD with MIRTA. Echo done 04/2016 showed EF 55-60%, mild LVH, no significant valvular abnormalities. Lexiscan MPI stress test done 11/2016 was negative for significant ischemia. Past History Past Medical History: CAD, hypertension, hyperlipidemia Past Surgical History: total knee replacement, Other (Right shoulder surgery) Social history: , lives with family. denies: smoking, alcohol abuse Family history: hypertension Medications and Allergies Allergies Allergy/AdvReac Type Severity Reaction Status Date / Time No Known Allergies Allergy Verified 12/17/19 11:56 Home Medications Medication Instructions Recorded Confirmed Last Taken Type Aspirin [Aspirin BABY CHEW TAB] 81 mg PO DAILY tab.chew 03/31/15 01/23/18 01/19/18 09:00 Rx AtorvaSTATin [Lipitor] 40 mg PO DAILY tablet 03/31/15 01/23/18 01/22/18 09:00 Rx Ezetimibe [Zetia] 10 mg PO DAILY tablet 03/31/15 01/23/18 01/22/18 09:00 Rx [place]-3 Fatty Acids/Fish Oil [Fish 1,000 mg PO DAILY capsule 03/31/15 01/23/18 01/22/18 09:00 Rx Oil] lisinopriL [Zestril TAB] 5 mg PO DAILY 01/21/18 01/23/18 01/22/18 09:00 History Benzonatate [Tessalon Perles] 100 mg PO Q8HR PRN #12 capsule 05/20/18 Unknown Rx Active Meds: Active Medications Acetaminophen (Tylenol) 650 mg PO Q4H PRN PRN Reason: Pain MILD(1-3)/Fever >100.5/CRUMP Aspirin (Baby Aspirin) 81 mg PO DAILY [facility] Atorvastatin Calcium (Lipitor) 40 mg PO DAILY [facility] Benzonatate (Tessalon Perles) 100 mg PO Q8HR PRN PRN Reason: Cough Ezetimibe (Zetia) 10 mg PO DAILY [facility] Fish Oil (Fish Oil) 1,000 mg PO DAILY [facility] Lisinopril (Zestril) 5 mg PO DAILY [facility] Ondansetron HCl (Zofran) 4 mg IV Q8H PRN PRN Reason: Nausea And Vomiting Pneumococcal Polyvalent Vaccine (Pneumovax 23) 0.5 ml IM .ONCE ONE Stop: 12/18/19 12:01 Sodium Chloride (Sodium Chloride Flush Syringe 10 Ml) 10 ml IV BID STEPHON Last Admin: 12/17/19 21:53 Dose: 10 ml Documented by: Sodium Chloride (Sodium Chloride Flush Syringe 10 Ml) 10 ml IV PRN PRN PRN Reason: LINE FLUSH Sodium Chloride (Sodium Chloride Flush Syringe 10 Ml) 10 ml IV PRN PRN PRN Reason: LINE FLUSH Review of Systems Constitutional: no weight loss, no weight gain, no fever, no chills, no sweats Ears, nose, mouth and throat: no ear pain, no nose pain, no sinus pressure, no sinus pain Cardiovascular: chest pain, decreased exercise tolerance, no orthopnea, no palpitations, no rapid/irregular heart beat, no edema, no syncope, no lightheadedness, no shortness of breath, no dyspnea on exertion, no leg edema Respiratory: no cough, no shortness of breath, no dyspnea on exertion, no congestion, no wheezing, no pain on inspiration Gastrointestinal: no abdominal pain, no nausea, no vomiting, no diarrhea, no co nstipation, no change in bowel habits Genitourinary Male: no dysuria, no hematuria, no flank pain, no discharge, no urinary frequency, no urinary hesitancy Musculoskeletal: no neck stiffness, no neck pain, no shooting arm pain, no arm numbness/tingling, no low back pain, no shooting leg pain Integumentary: no rash, no pruritis, no redness, no sores, no wounds Neurological: no head injury, no paralysis, no weakness, no parathesias, no numbness, no tingling, no seizures, no syncope Psychiatric: no anxiety Endocrine: no cold intolerance, no heat intolerance Hematologic/Lymphatic: no easy bruising Allergic/Immunologic: no urticaria Physical Examination Vital Signs Temp Pulse Resp BP Pulse Ox 98.2 F 59 L 18 128/65 95 12/17/19 11:56 12/17/19 11:56 12/17/19 11:56 12/17/19 11:56 12/17/19 11:56 General appearance: no acute distress HEENT: Positive: PERRL, Normocephaly, Mucus Membranes Moist Neck: Positive: neck supple, trachea midline Cardiac: Positive: Reg Rate and Rhythm, S1/S2 Lungs: Positive: Decreased Breath Sounds Neuro: Positive: Grossly Intact Abdomen: Negative: Tender Skin: Negative: Rash Musculoskeletal: No Pain Extremities: Absent: edema Results 12/17/19 13:12/18/19 04:25 Cardiac Enzymes 12/17/19 12/18/19 Range/Units 13:01 04:25 AST 40 34 (5-40) units/L Lipids 12/17/19 Range/Units 17:20 Triglycerides 119 (2-149) mg/dL Cholesterol 104 (50-199) mg/dL HDL Cholesterol 38 L (40-59) mg/dL Cholesterol/HDL Ratio 2.73 % CBC 12/17/19 Range/Units 13:01 WBC 5.7 (4.5-11.0) K/mm3 RBC 4.01 (3.65-5.03) M/mm3 Hgb 13.0 (11.8-15.2) gm/dl Hct 39.4 (35.5-45.6) % Plt Count 132 L (140-440) K/mm3 Lymph # 1.9 (1.2-5.4) K/mm3 [place] # 0.5 (0.0-0.8) K/mm3 Eos # 0.1 (0.0-0.4) K/mm3 Baso # 0.0 (0.0-0.1) K/mm3 Comprehensive Metabolic Panel 12/17/19 12/18/19 Range/Units 13:01 04:25 Sodium 141 144 (137-145) mmol/L Potassium 4.4 4.8 (3.6-5.0) mmol/L Chloride 106.1 108.8 H (98-107) mmol/L Carbon Dioxide 25 24 (22-30) mmol/L BUN 16 15 (9-20) mg/dL Creatinine 1.0 1.0 (0.8-1.5) mg/dL Glucose 91 96 (75-100) mg/dL Calcium 8.9 8.8 (8.4-10.2) mg/dL AST 40 34 (5-40) units/L ALT 34 29 (7-56) units/L Alkaline Phosphatase 123 108 (35-129) units/L Total Protein 6.8 6.3 (6.3-8.2) g/dL Albumin 4.2 3.6 L (3.9-5) g/dL - Imaging and Cardiology Echo: report reviewed (04/2016 showed EF 55-60%, mild LVH, no significant valvular abnormalities. ) Cardiac cath: report reviewed (11/2009 with PCI of mid and prox LAD with MIRTA. ) EKG: report reviewed, image reviewed EKG interpretations - Telemetry EKG Rhythm: Sinus Rhythm - EKG Sinus rhythms and dysrhythmias: sinus rhythm AV and intraventricular conduction: right bundle branch block Assessment and Plan AMI r/o. Chest pain currently resolved. Obtain echo and proceed with lexiscan MPI stress test today. Await findings. Tele reviewed - pt is noted to have sinus bradycardia with HR low 42bpm overnight. Pt reports that his HR is chronically low, he does not appear to be t aking any AV juan blocking agents at home. Thyroid profile WNL. Cont to hold AV juan blockers and monitor on telemetry. The patient has been seen in conjunction with Dr. Altman who agrees with the assessment and plan of care. - Patient Problems (1) Chest pain Current Visit: Yes Status: Acute Qualifiers: Chest pain type: unspecified Qualified Code(s): R07.9 - Chest pain, unspecified (2) CAD (coronary artery disease) Current Visit: Yes Status: Chronic Qualifiers: Coronary Disease-Associated Artery/Lesion type: [place] artery [place] vs. transplanted heart: [place] heart Associated angina: with unspecified angina Qualified Code(s): I25.119 - Atherosclerotic heart disease of [place] coronary artery with unspecified angina pectoris (3) Stented coronary artery Current Visit: Yes Status: Chronic (4) HTN (hypertension) Current Visit: Yes Status: Chronic Qualifiers: Hypertension type: essential hypertension Qualified Code(s): I10 - Essential (primary) hypertension (5) HLD (hyperlipidemia) Current Visit: Yes Status: Chronic (6) Sinus bradycardia Current Visit: Yes Status: Chronic
[2019-12-18] MEDS ORDERED: EZETIMIBE 10 MG TAB PO SCH (10:00)
[2019-12-18] MEDS ORDERED: LISINOPRIL 5 MG TAB PO SCH (10:00)
[2019-12-18] MEDS ORDERED: OMEGA-3 FATTY ACIDS/FISH OIL 1 GRAM CAP PO SCH (10:00)
[2019-12-18] MEDS ORDERED: ASPIRIN 81 MG TAB CHEW PO SCH (10:00)
--- NOTE | 2019-12-18 11:35 | Event Note ---
Date: 12/18/19 S/p lexiscan MPI stress test this morning which was negative. Echo reviewed with no significant abnormalities. Pt may discharge from cardiology standpoint. Recommend follow up in our office with Dr. Fernandez within 2 weeks of discharge ([phone]). Pt verbalizes understanding, will call and make his own appt. Carito OCAMPO NP / DR. FRIEDMAN
[2019-12-18] MEDS ORDERED: PNEUMOCOCCAL 23 Valent 0.5 ML VIAL IM ONE (12:00)
--- NOTE | 2019-12-18 13:12 | Discharge Summary ---
Providers - Providers Date of Admission: 12/17/19 17:00 Attending physician: GIOVANNA CISNEROS 12/17/19 Consult to Cardiac Rehabilitation [CONS] Routine Reason For Exam: Phase I 12/17/19 16:58 Consult to Physician [CONS] Routine Comment: Consulting Provider: PATSY PERAZA Physician Instructions: Reason For Exam: chest pain. cad. stents Primary care physician: CLARIFICATION OPERATOR Hospitalization Condition: Critical Pertinent studies: Stress test: Negative for acute ischemia Echocardiogram: Showed diastolic dysfunction consistent with heart failure with preserved ejection fraction low Hospital course: 84 YO Male with HTN, HLD, GERD, CAD S/P Stent Placement, OA presented to ED for evaluation. Pt stated that he had experienced pain in his chest over the past 3 weeks with a sudden onset of worsening chest pain this morning shortly after awakening from sleep at around 1000 hrs. Patient stated that pain was 45/10, was initially intermittent but had now become more constant, sharp, crushing in nature, substernal, radiates to the left arm, not worsened with exertion, not relieved with rest. Patient acknowledged orthopnea/PND, decreased exercise tolerance, dyspnea on exertion. Patient transported to [facility] via private vehicle for further evaluation and care. Patient seen and evaluated in the emergency department. Lab and imaging studies reviewed. Patient found to have clinical symptoms consistent with CHF decompensation, as well as angina at rest. Patient admitted to telemetry and initiated on CHF protocol. Cardiology team consulted in the ED. patient convalesced well during hospital course. Patient treated in accordance with chest pain protocol. Serial cardiac enzymes, and EKG were unremarkable. Patient underwent stress test which was negative for acute ischemia. Patient also underwent echocardiogram which was significant for heart failure with preserved ejection fraction which is also consistent with [place] congestive heart failure. Patient medically optimized and back to usual state of health. Patient seen and evaluated prior to discharge but no significant new physical exam findings. Patient discharged home instructed to follow-up with primary care physician within 3 to 5 days. Patient also instructed to follow-up with cardiology team as instructed. 35 minutes dedicated to patient discharge and coordination of care plan. Disposition: - TO HOME OR SELFCARE - Discharge Diagnoses (1) Diastolic CHF Status: Suspected Qualifiers: Heart failure chronicity: acute Qualified Code(s): I50.31 - Acute diastolic (congestive) heart failure (2) Angina at rest Status: Acute (3) CAD (coronary artery disease) Status: Chronic Qualifiers: Coronary Disease-Associated Artery/Lesion type: [place] artery [place] vs. transplanted heart: [place] heart Associated angina: with unspecified angina Qualified Code(s): I25.119 - Atherosclerotic heart disease of [place] coronary artery with unspecified angina pectoris (4) Hyperlipidemia Status: Acute Qualifiers: Hyperlipidemia type: mixed hyperlipidemia Qualified Code(s): E78.2 - Mixed hyperlipidemia (5) Gastroesophageal reflux disease Status: Acute Qualifiers: Esophagitis presence: without esophagitis Qualified Code(s): K21.9 - Gastro-esophageal reflux disease without esophagitis (6) DVT prophylaxis Status: Acute (7) Advance care planning Status: Acute Core Measure Documentation - Palliative Care Palliative Care/ Comfort Measures: Not Applicable - Core Measures Any of the following diagnoses?: heart failure - Heart Failure Discharge Requirements JOHN/ARB for LVSD if EF <40%: Yes Beta maddy at discharge: No Reason for no beta maddy on DC: Patient refusal Exam - Constitutional Vitals: Temp Pulse Resp BP Pulse Ox 97.8 F 45 L 18 147/78 96 12/18/19 08:10 12/18/19 08:10 12/18/19 08:10 12/18/19 10:27 12/18/19 08:10 General appearance: Present: no acute distress, well-nourished - EENT Eyes: Present: PERRL ENT: hearing intact, clear oral mucosa - Neck Neck: Present: supple, normal ROM - Respiratory Respiratory effort: normal Respiratory: bilateral: CTA - Cardiovascular Heart Sounds: Present: S1 & S2. Absent: rub, click - Extremities Extremities: pulses symmetrical, No edema Peripheral Pulses: within normal limits - Abdominal General gastrointestinal: Present: soft, non-tender, non-distended, normal bowel sounds Male genitourinary: Present: normal - Integumentary Integumentary: Present: clear, warm, dry - Musculoskeletal Musculoskeletal: gait normal, strength equal bilaterally - Psychiatric Psychiatric: appropriate mood/affect, intact judgment & insight - Neurologic Neurologic: CNII-XII intact, moves all extremities Plan Activity: advance as tolerated Diet: low fat, low cholesterol, low salt Special Instructions: record daily BP diary Follow up with: PRIMARY CAREMD [Primary Care Provider] - 3-5 Days
[2019-12-18 13:41] VITALS: BP 156/66
--- NOTE | 2019-12-18 15:29 | Treadmill Report ---
IV LEXISCAN PHARMACOLOGICAL MYOCARDIAL PERFUSION IMAGING REPORT An 84-year-old white gentleman with previous history of coronary artery stenting in 2009 of mid LAD, presents with atypical chest pain. Cardiac enzymes were found to be unremarkable. EKG showed sinus rhythm, within normal limits. Received 0.4 mg of IV regadenoson intravenously. The patient tolerated the medication well. EKG did not show any significant changes from baseline. No chest pain was noted. Vital signs have been stable. Myocardial perfusion images were obtained at rest and following vasodilation with regadenoson. These images showed normal perfusion post-vasodilation and at rest. No significant perfusion abnormalities were noted. Gated study was performed after vasodilation. This showed normal left ventricular systolic function, ejection fraction being calculated at 60%. Transient ischemic dilation ratio was found to be 1.18. FINAL IMPRESSION: 1. The patient tolerated the pharmacological agent, namely IV regadenoson, without any significant side effects. 2. Did not have any chest pain. 3. No EKG changes were noted to suggest ischemia, rhythm being sinus. 4. Myocardial perfusion images did not show any significant perfusion defects, no evidence of ischemia noted. Normal left ventricular systolic function was noted on the gated study post-vasodilation. JOB# [id number] CHARLENE/AZAR
== END 2019-12-18 14:14 | disposition home or self-care (01) | DRG 291 ==
LOC: ED 11:55 → 4A 17:00
PROVIDERS: ADMIT Internal Medicine; ATTEND Internal Medicine
PROC: 3E0234Z Introduction of Serum, Toxoid and Vaccine into Muscle, Percutaneous Approach (ICD-10-PCS; principal; 2019-12-18)
DX: I11.0 Hypertensive heart disease with heart failure (principal); I50.31 Acute diastolic (congestive) heart failure; K21.9 Gastro-esophageal reflux disease without esophagitis; M19.90 Unspecified osteoarthritis, unspecified site; I25.119 Atherosclerotic heart disease of native coronary artery with unspecified angina pectoris; Z96.659 Presence of unspecified artificial knee joint; E78.2 Mixed hyperlipidemia; I45.10 Unspecified right bundle-branch block; Z23 Encounter for immunization; I25.2 Old myocardial infarction; Z95.5 Presence of coronary angioplasty implant and graft; Z82.49 Family history of ischemic heart disease and other diseases of the circulatory system
CPT/HCPCS: 36415; 71046; 78452; 80053; 80061; 83735; 83880; 84439; 84443; 84484; 85025; 90732; 93005; 93017; 93306; G0378; A9270-GY; A9502; J2785